=== PATIENT | male | born 1970 | race Caucasian/White ===

== ENCOUNTER 2021-02-21 09:39 | Outpatient (REF) | payer OTHER, SELFPAY ==
--- NOTE | ~2021-02-21 | XR_ITS ---
EXAMINATION: XR CHEST CLINICAL INFORMATION: Patient refers lump on the right scapulary region. COMPARISON: None TECHNIQUE: 2 views of the chest were obtained. FINDINGS: Normal appearance of the cardiomediastinal silhouette. The lungs are clear. No focal airspace opacities or pleural effusions. Normal appearance of the upper abdomen. XR/XR chest 2V IMPRESSION: No acute cardiopulmonary findings. No soft tissue abnormalities or bony abnormalities to correlate with the patient's concerns. If clinically indicated, consider further evaluation with a targeted ultrasound within the area of clinical concern or a different imaging modality such as CT or MR as a problem solving tool.
== END 2021-02-21 09:40 | disposition home or self-care (01) ==
LOC: HO.XRAY 09:39
PROVIDERS: PCP Internal Medicine; Visit Provider Internal Medicine
DX: R22.2 Localized swelling, mass and lump, trunk (principal)
CPT/HCPCS: 71046

== ENCOUNTER 2021-05-19 09:57 | Outpatient (REF) | payer OTHER, SELFPAY | END 2021-05-19 09:58 | disposition home or self-care (01) | LOC: HO.HMGCLDS 09:57 | PROVIDERS: Visit Provider Internal Medicine | DX: Z20.822 Contact with and (suspected) exposure to COVID-19 (principal) | CPT/HCPCS: C9803; U0003; U0005 ==